=== PATIENT | male | born 1965 | race Hispanic/Latino ===

== ENCOUNTER 2017-07-19 15:30 | Inpatient (IN) | payer BC ==
[~2017-07-19] VITALS: Ht 162.6 cm; Wt 79.8 kg
[2017-07-19 14:54] LABS: BASOPHILS % (AUTO) 0.6 % (0.0-5.0); EOSINOPHILS % (AUTO) 4.6 % (0.0-8.0); HEMATOCRIT 46.7 % (42-54); MEAN CORPUSCULAR HEMOGLOBIN 29.5 pg (27.0-33.0); MEAN CORPUSCULAR HGB CONC 34.1 g/dL (32.0-36.0); MEAN CORPUSCULAR VOLUME 86.4 fL (79-99); MONOCYTES % (AUTO) 5.9 % (3.0-13.0); NEUTROPHILS % (AUTO) 67.9 % (40.0-77.0); PLATELET COUNT (AUTO) 232 K/uL (130-400)
[2017-07-19 15:07] LABS: APPEARANCE,URINE Clear (CLEAR); BILIRUBIN,URINE Negative (NEGATIVE); COLOR,URINE Yellow (YELLOW); GLUCOSE, URINE (UA) Negative (NEGATIVE); KETONES,URINE Negative (NEGATIVE); LEUKOCYTE ESTERASE ,URINE Negative (NEGATIVE); NITRATE,URINE Negative (NEGATIVE); OCCULT BLOOD,URINE Negative (NEGATIVE); PH,URINE 6.5 (5.0-8.0); PROTEIN,URINE Negative (NEGATIVE); UROBILINOGEN,URINE 0.2 mg/dL (0.2-1.0)
[2017-07-19 15:13] VITALS: BP 152/79
[2017-07-19 15:17] LABS: INR 1.03 (0.85-1.15); PARTIAL THROMBOPLASTIN TIME 27.3 SEC (26.3-35.5); PROTHROMBIN TIME 10.8 SEC (9.6-11.6)
[2017-07-19 15:20] LABS: CREATININE 1.1 mg/dL (0.5-1.5); POTASSIUM 4.2 mmol/L (3.5-5.1)
[~2017-07-19 15:30] MED LIST: ASPI-1012 PO
[2017-07-20] VITALS (18 sets, daily range): BP systolic 111–157; BP diastolic 48–95
[2017-07-20] MEDS ORDERED: LACTATED RINGERS 1000ML 1,000 ML IV ONE (11:45)
[2017-07-20] MEDS ORDERED: WATER FOR INJECTION,STERILE 20 ML VIAL ONE ×2 (11:46→21:24)
[2017-07-20] MEDS ORDERED: KETOROLAC TROMETHAMINE 15MG/ML ONE (13:53)
[2017-07-20] MEDS ORDERED: ACETAMINOPHEN EXTRA STRENGTH 500 MG TABLET ONE (13:53)
[2017-07-20] MEDS ORDERED: OXYCODONE HCL 10 MG TAB.SR.12H PO ONE (13:54)
[2017-07-20] MEDS ORDERED: METOCLOPRAMIDE 10 MG/2 ML VIAL ONE (13:54)
[2017-07-20] MEDS ORDERED: CELECOXIB 200 MG CAP ONE (13:54)
[2017-07-20] MEDS: CEFAZOLIN SODIUM 1 GM VIAL IVP SCH ×3 (14:03→21:32)
[2017-07-20] MEDS ORDERED: TRANEXAMIC ACID 1000MG/10ML IV ONE ×2 (14:25)
[2017-07-20] MEDS ORDERED: CEFAZOLIN SODIUM 1 GM VIAL ONE (14:25)
[2017-07-20] MEDS ORDERED: ONDANSETRON HCL 4 MG/2 ML VIAL ONE (14:41)
[2017-07-20] MEDS ORDERED: GLYCOPYRROLATE 0.2 MG/ML 5 ML VIAL ONE (14:42)
[2017-07-20] MEDS ORDERED: SUCCINYLCHOLINE 200MG/10ML SYR ONE (14:42)
[2017-07-20] MEDS ORDERED: ROPIVACAINE 0.5% 5MG/ML 30ML IJ ONE (14:42)
[2017-07-20] MEDS ORDERED: NEOSTIGMINE METHYLSULFATE 1MG/ML IV ONE (14:42)
[2017-07-20] MEDS ORDERED: LIDOCAINE PF 2% 5ML ABBOJECT ONE (14:42)
[2017-07-20] MEDS ORDERED: PROPOFOL 10 MG/ML 20ML VIAL IV ONE ×2 (14:42→16:32)
[2017-07-20] MEDS ORDERED: DEXAMETHASONE SOD PHOSPHATE 10MG/ML 1ML VIAL ONE (14:42)
[2017-07-20] MEDS ORDERED: MIDAZOLAM HCL 1 MG/ML 2ML VIAL ONE (14:42)
[2017-07-20] MEDS ORDERED: FENTANYL CITRATE PF 50 MCG/1 ML 2ML VIAL ONE (14:43)
[2017-07-20] MEDS ORDERED: EPHEDRINE SULFATE 50 MG/ML AMPULE ONE (15:08)
[2017-07-20] MEDS ORDERED: ROCURONIUM BROMIDE 10MG/1ML 5ML VL ONE (15:09)
[2017-07-20] MEDS ORDERED: DIPHENHYDRAMINE HCL 25 MG CAPSULE PO PRN (17:15)
[2017-07-20] MEDS ORDERED: LIDOCAINE HCL-MPF 1% 2ML VIAL IVP PRN (17:15)
[2017-07-20] MEDS: ACETAMINOPHEN 325 MG TAB PO SCH ×2 (17:15→21:31)
[2017-07-20] MEDS ORDERED: POTASSIUM CHLORIDE 20MEQ/100ML 100 ML IV PRN (17:15)
[2017-07-20] MEDS ORDERED: TEMAZEPAM 15 MG CAPSULE PO PRN (17:15)
[2017-07-20] MEDS ORDERED: TRAMADOL HCL 50 MG TABLET PO PRN (17:15)
[2017-07-20] MEDS ORDERED: PROMETHAZINE HCL 25 MG/ML 1ML AMPULE IM PRN (17:15)
[2017-07-20] MEDS ORDERED: FERROUS FUMARATE 324 MG TABLET PO PRN (17:15)
[2017-07-20] MEDS ORDERED: OXYCODONE HCL 5 MG TAB PO PRN ×2 (17:15)
[2017-07-20] MEDS ORDERED: DiphenhydrAMINE HCL 50 MG/ML VIAL IVP PRN (17:15)
[2017-07-20] MEDS ORDERED: KETOROLAC TROMETHAMINE 15MG/ML IV PRN (17:15)
[2017-07-20] MEDS ORDERED: POTASSIUM CHLORIDE 10% ELIXIR 20 MEQ/15 ML UDCUP PO PRN (17:15)
[2017-07-20] MEDS ORDERED: POTASSIUM CHLORIDE 20 MEQ ERTAB PO PRN (17:15)
[2017-07-20] MEDS ORDERED: CALCIUM CARBONATE 500 MG TABLET PO PRN (17:15)
[2017-07-20] MEDS ORDERED: ASPI-555 PO (19:07)
[2017-07-20] MEDS: SODIUM CHLORIDE 0.9% 1000ML 1,000 ML IV SCH (19:10)
[2017-07-20] MEDS ORDERED: PREGABALIN 25 MG CAP PO SCH (21:00)
[2017-07-20] MEDS: CELECOXIB 200 MG CAP PO SCH (21:31)
[2017-07-20] MEDS: ASPIRIN 325 MG TABLET PO SCH (21:31)
[2017-07-20] MEDS: FAMOTIDINE 20MG TAB 20 MG TAB PO SCH (21:31)
[2017-07-20] MEDS: WATER FOR INJECTION,STERILE 20 ML VIAL IJ SCH (21:32)
[2017-07-20] MEDS ORDERED: CEFAZOLIN 2GM / 50 ML 50 ML IV SCH (22:15)
[2017-07-21] MEDS: SODIUM CHLORIDE 0.9% 1000ML 1,000 ML IV SCH ×2 (03:57→13:09)
[2017-07-21 05:05] VITALS: BP 109/72
[2017-07-21] MEDS: CEFAZOLIN SODIUM 1 GM VIAL IVP SCH (05:11)
[2017-07-21] MEDS: ACETAMINOPHEN 325 MG TAB PO SCH ×4 (05:11→23:27)
[2017-07-21] MEDS: WATER FOR INJECTION,STERILE 20 ML VIAL IJ SCH (05:12)
[2017-07-21 05:59] LABS: HEMATOCRIT 36.6 % (42-54); MEAN CORPUSCULAR HEMOGLOBIN 29.9 pg (27.0-33.0); MEAN CORPUSCULAR HGB CONC 34.5 g/dL (32.0-36.0); MEAN CORPUSCULAR VOLUME 86.7 fL (79-99); NUCLEATED RED BLOOD CELLS 0.1 % (0.0-0.19); PLATELET COUNT (AUTO) 204 K/uL (130-400); RED BLOOD CELL COUNT(AUTO) 4.22 MIL/uL (4.50-6.20); RED CELL DISTRIBUTION WIDTH 13.9 % (11.0-15.5); WHITE BLOOD COUNT (AUTO) 17.1 K/uL (4.8-10.8)
[2017-07-21 06:11] LABS: CREATININE 1.1 mg/dL (0.5-1.5); POTASSIUM 4.4 mmol/L (3.5-5.1)
[2017-07-21 08:09] VITALS: BP 135/79
[2017-07-21] MEDS: POLYETHYLENE GLYCOL 3350 17 GM POWD.PACK PO SCH (09:30)
[2017-07-21] MEDS: ASPIRIN 325 MG TABLET PO SCH ×2 (09:31→20:13)
[2017-07-21] MEDS: TAMSULOSIN HCL 0.4 MG CAP.ER.24H PO SCH (09:31)
[2017-07-21] MEDS: FAMOTIDINE 20MG TAB 20 MG TAB PO SCH ×3 (09:31→20:18)
[2017-07-21] MEDS: CELECOXIB 200 MG CAP PO SCH ×2 (09:33→20:14)
[2017-07-21 11:58] VITALS: BP 128/65
[2017-07-21] MEDS: PSYLLIUM SEED 1 EACH PACKET PO SCH (13:11)
[2017-07-21 15:59] VITALS: BP 99/58
[2017-07-21 20:45] VITALS: BP 103/59
[2017-07-22 00:04] VITALS: BP 94/58
[2017-07-22] MEDS: ACETAMINOPHEN 325 MG TAB PO SCH ×2 (04:49→11:11)
[2017-07-22 04:59] VITALS: BP 102/72
[2017-07-22 05:20] LABS: HEMATOCRIT 32.7 % (42-54); MEAN CORPUSCULAR HEMOGLOBIN 31.1 pg (27.0-33.0); MEAN CORPUSCULAR HGB CONC 35.9 g/dL (32.0-36.0); MEAN CORPUSCULAR VOLUME 86.7 fL (79-99); PLATELET COUNT (AUTO) 163 K/uL (130-400); RED BLOOD CELL COUNT(AUTO) 3.77 MIL/uL (4.50-6.20); RED CELL DISTRIBUTION WIDTH 14.1 % (11.0-15.5); WHITE BLOOD COUNT (AUTO) 10.6 K/uL (4.8-10.8)
[2017-07-22 05:35] LABS: POTASSIUM 3.9 mmol/L (3.5-5.1)
[2017-07-22 07:30] VITALS: BP 100/61
[2017-07-22] MEDS: ASPIRIN 325 MG TABLET PO SCH (08:41)
[2017-07-22] MEDS: FAMOTIDINE 20MG TAB 20 MG TAB PO SCH (08:41)
[2017-07-22] MEDS: TAMSULOSIN HCL 0.4 MG CAP.ER.24H PO SCH (08:41)
[2017-07-22] MEDS: CELECOXIB 200 MG CAP PO SCH (08:41)
[2017-07-22] MEDS: POLYETHYLENE GLYCOL 3350 17 GM POWD.PACK PO SCH (08:41)
[2017-07-22] MEDS: PSYLLIUM SEED 1 EACH PACKET PO SCH (11:11)
[2017-07-22] MEDS ORDERED: HYDR-309 PO (11:15)
[2017-07-22] MEDS ORDERED: ASPI-1012 PO (11:15)
[2017-07-22] MEDS ORDERED: BISACODYL 5 MG TABLET.DR PO PRN (17:15)
[2017-07-23] MEDS ORDERED: BISACODYL 10 MG SUPP.RECT RC PRN (17:15)
== END 2017-07-22 17:15 | disposition home health service (06) | DRG 470 ==
LOC: EDSTATUS 15:30 → DAHIP 07-20 10:25 → 4AH 07-20 18:30
PROVIDERS: ADMIT Orthopaedic Surgery; ATTEND Orthopaedic Surgery
PROC: 0SR902Z Replacement of Right Hip Joint with Metal on Polyethylene Synthetic Substitute, Open Approach (ICD-10-PCS; principal; 2017-07-20 14:40)
DX: M16.11 Unilateral primary osteoarthritis, right hip (principal); M87.9 Osteonecrosis, unspecified; Z96.642 Presence of left artificial hip joint; G89.29 Other chronic pain; M16.9 Osteoarthritis of hip, unspecified
CPT/HCPCS: 36415; 76000; 80048; 81003; 85025; 85027; 85610; 85730; 88304; 88311; 96374; 96375; J0330; J0690; J1100; J1885; J2001; J2250; J2405; J2704; J2710; J2765; J2795; J3010; J3490; J7030; J7120

== ENCOUNTER → 2023-05-23 | Outpatient (CLI) | payer BC ==
[~2023-05-23] MED LIST changes: +HYDR-4457 PO
== END | disposition home or self-care (01) ==
LOC: RAH 14:43
PROVIDERS: ATTEND Family Medicine
DX: M25.551 Pain in right hip (principal); M25.552 Pain in left hip
CPT/HCPCS: 73721